=== PATIENT | male | born 1960 | race Caucasian/White ===

== ENCOUNTER 2019-05-12 16:59 | Emergency (ER) | payer MEDICARE, MEDICAID ==
[~2019-05-12] VITALS: Ht 175.3 cm; Wt 112.7 kg
[2019-05-12 17:03] VITALS: BP 158/99
[2019-05-12] MEDS ORDERED: cholesterol PO (17:09)
[2019-05-12] MEDS ORDERED: METH10 PO (17:09)
[2019-05-12] MEDS ORDERED: htn PO (17:09)
[2019-05-12] MEDS ORDERED: INSLAN SQ (17:09)
[2019-05-12] MEDS ORDERED: INSNPH SQ (17:09)
[2019-05-12 17:16] LABS: GLUCOSE,POINT OF CARE 126 MG/DL (70-110)
== END 2019-05-12 20:00 | disposition left against medical advice (07) ==
LOC: EMS 17:02
DX: M79.605 Pain in left leg (principal); M79.604 Pain in right leg; Z53.21 Procedure and treatment not carried out due to patient leaving prior to being seen by health care provider